=== PATIENT | male | born 1995 | race Caucasian/White ===

== ENCOUNTER 2022-06-02 02:48 | Emergency (ER) | payer SELFPAY ==
[2022-06-02 03:00] VITALS: BP 158/92; PULSE 110; RESP 20; TEMP 36.7; O2SAT 100
== END 2022-06-02 06:48 | disposition left against medical advice (07) ==
PROVIDERS: PCP Internal Medicine
DX: Z53.21 Procedure and treatment not carried out due to patient leaving prior to being seen by health care provider (principal)
CPT/HCPCS: 99199

== ENCOUNTER 2022-08-27 08:54 | Outpatient (CLI) | payer BC, SELFPAY ==
--- NOTE | ~2022-08-27 | US_ITS ---
Abdominal Sonogram: Real-time sonographic imaging of the abdomen was performed. Clinical History: Epigastric pain Findings: The liver appears normal with no evidence of mass lesion or bile duct dilatation. Main por tamela vein demonstrates normal direction of flow. The spleen is normal in size without evidence of foca l lesion. The gallbladder is well distended, and appears normal with no evidence of gallstone or wal l thickening. The common bile duct measures 4 mm. The visualized pancreas, aorta, and IVC are unrema rkable. The right kidney measures 10.3 cm in length and the left kidney measures 11.3 cm. There is no hydronephrosis or renal calculus. Impression: Unremarkable abdominal ultrasound. Reviewed, dictated and finalized at location . Impression: Unremarkable abdominal ultrasound.
== END 2022-08-27 08:55 | disposition home or self-care (01) ==
PROVIDERS: PCP Internal Medicine; Visit Provider Internal Medicine Gastroenterology
DX: R10.13 Epigastric pain (principal)
CPT/HCPCS: 76700

== ENCOUNTER 2022-09-11 00:37 | Day surgery (SDC) | payer BC, SELFPAY ==
[2022-08-26 13:55] VITALS: BMI 24.5
--- NOTE | 2022-09-10 14:52 | PM.HPGS ---
History of Present Illness History of Present Illness Consent: Risks, benefits, and alternatives have been discussed and questions answered. Patient agrees to proceed with procedure. Chief complaint: abdominal distension,weightloss, epigastric pain Narrative: Maninder Ross is a 27 year old male who was seen in his primary care physician's office in mid June.? At that time he complained of a 10 day history of epigastric discomfort accompanied by bloating.? This was not accompanied by nausea or vomiting or any change in bowel habits.? He was given it appears a 14 day course of pantoprazole. Laboratory studies were done including CBC and complete metabolic panel all which were normal, including liver enzymes and lipase. He states that his predominant concern was the distention of his abdomen.? He felt a gas sensation in the epigastric area.? ? He was not nauseated and did not vomit.? His appetite was good but he did lose about 15 lb since the of the year.? During the 1st week of June he also was belching ?nonstop? for several days.? At that time his abdomen was huge.? Review of Systems Review of Systems: All systems reviewed & are unremarkable except as noted in HPI and below PMFSH Past Medical History Medical History Hypertriglyceridemia Meningococcal meningitis Sinus tachycardia Family History Family History (Updated 07/24/22 @ 15:19 by Niecy Macdonald MA) Grandparent Family history of gallbladder disease Social History Social History Smoking status: Never smoker Alcohol intake: never Substance use: never Substance use type: does not use Living arrangements: alone Meds Home Medications and Allergies Home Medications Medication Instructions Recorded Confirmed Type No Home Medications 08/26/22 08/26/22 History Allergies Allergy/AdvReac Type Severity Reaction Status Date / Time No Known Allergies Allergy Verified 08/26/22 13:55 Exam Const: General: alert Orientation/consciousness: patient oriented x3 Resp: Auscultation: clear to auscultation bilaterally Cardio: Rhythm: regular rhythm GI: GI Palp: Yes Soft to palpation and No Tenderness to palpation present (GI) Neuro: General: patient oriented x3 Assessment and Plan Assessment and plan (1) Epigastric pain: Code(s): R10.13 - Epigastric pain Status: Acute Assessment and Plan: EGD with possible biopsy or dilatation or cautery.
[2022-09-11 08:45] VITALS: BP 144/82; PULSE 101; RESP 18; TEMP 36.4; O2SAT 100; BMI 24.5
[2022-09-11] MEDS: LACTATED RINGERS 1,000 ML 150 ML IV CONT (09:01)
--- NOTE | 2022-09-11 09:22 | P.PNAN_ITS ---
Anes - Initial Pre Proc Eval Procedure: Operation Date: 09/11/22 10:00 Proposed Procedures p Esophagogastroduodenoscopy - Aneudy Silva MD Date/Time: 09/11/22 09:22 Surgeon: Aneudy Silva MD Pre Op Diagnosis: abdominal distension,weightloss, epigastric pain Patient Data Age: 27 Gender: M Height: 1.78 m Weight: 77.6 kg Last Vital Signs Temp 97.6 F 09/11/22 08:45 Pulse 101 H 09/11/22 08:45 Resp 18 09/11/22 08:45 BP 144/82 H 09/11/22 08:45 Pulse Ox 100 09/11/22 08:45 O2 Del Method Room Air 09/11/22 08:45 Allergies Allergy/AdvReac Type Severity Reaction Status Date / Time No Known Allergies Allergy Verified 08/26/22 13:55 Home Medications Medication Instructions Recorded Confirmed Type No Home Medications 08/26/22 08/26/22 History Patient hx anesthesia problems: none Family hx anesthesia problems: none Results Review: All pre-operative results and documents have been reviewed as part of the pre- operative evaluation. [facility] Past Medical History Medical History Hypertriglyceridemia Meningococcal meningitis Sinus tachycardia Family History Family History (Updated 07/24/22 @ 15:19 by Niecy Macdonald MA) Grandparent Family history of gallbladder disease Social History Social History Smoking status: Never smoker Alcohol intake: never Substance use: never Substance use type: does not use Living arrangements: alone Anes - Eval Final PreProcedure Day of Procedure 09/11/22 09:22 Patient weight: normal Heart: regular rate and rhythm Lungs: clear to auscultation Airway: Mallampati scale class II Neurological: alert and oriented Last oral intake: >/= 8 hours ASA classification: II Emergent: no Anesthetic plan: proceed Anesthesia type and monitoring: general GIVS and standard monitoring Results Review: All pre-operative results and documents have been reviewed as part of the pre- operative evaluation. Informed Consent: The patient's anesthetic plan and its attendant risks and benefits were discussed with the patient/family/POA. Questions were solicited and answers provided to the satisfaction of the patient/family/POA.
[2022-09-11 10:03] VITALS: BP 112/73; PULSE 78; RESP 21; O2SAT 98
[2022-09-11 10:13] VITALS: BP 127/88; PULSE 79; RESP 16; O2SAT 99
[2022-09-11 10:23] VITALS: BP 123/82; PULSE 71; RESP 18; O2SAT 100
== END 2022-09-11 10:33 | disposition home or self-care (01) ==
PROVIDERS: PCP Internal Medicine; Visit Provider Internal Medicine Gastroenterology
PROC: 0DJ08ZZ Inspection of Upper Intestinal Tract, Via Natural or Artificial Opening Endoscopic (ICD-10-PCS; CPT 43235; principal; 2022-09-11 10:00)
DX: K21.9 Gastro-esophageal reflux disease without esophagitis (principal)
CPT/HCPCS: 43239; 87081; 88305; J2704; J7120